=== PATIENT | male | born 1975 | race Caucasian/White ===

== ENCOUNTER → 2021-11-22 11:20 | Outpatient (BNVA) | payer OTHER, SELFPAY | PROVIDERS: PCP Nurse Practitioner Family; Visit Provider Nurse Practitioner Family | DX: E78.5 Hyperlipidemia, unspecified (principal); I10 Essential (primary) hypertension; J30.2 Other seasonal allergic rhinitis; M19.90 Unspecified osteoarthritis, unspecified site; W57.XXXA Bitten or stung by nonvenomous insect and other nonvenomous arthropods, initial encounter | CPT/HCPCS: 80053; 80061; 86618; 86666; 86757; G0103 ==

== ENCOUNTER → 2022-03-27 10:04 | Outpatient (BNVA) | payer OTHER, SELFPAY | PROVIDERS: PCP Nurse Practitioner Family; Visit Provider Nurse Practitioner Family | DX: I10 Essential (primary) hypertension (principal); R42 Dizziness and giddiness | CPT/HCPCS: 80053; 80061 ==

== ENCOUNTER 2022-08-11 13:12 | Outpatient (CLI) | payer OTHER, SELFPAY ==
--- NOTE | 2022-08-11 13:23 | XR_ITS ---
WS: [id number] Sacroiliac joints, 3 views, 08/11/2022 Clinical Data: fall at home left sided sciatica Comparison: None. Findings: The SI joints are normal in width. No erosion, sclerosis or destruction is seen. There are no fractur es or dislocations. The adjacent visualized pelvis and hips are unremarkable. XR/XR sacroiliac jts m 3V [id number] Impression: Negative SI joints.
== END 2022-08-11 13:13 | disposition home or self-care (01) ==
LOC: RAD 13:15
PROVIDERS: PCP Nurse Practitioner Family; Visit Provider Nurse Practitioner Family
DX: M54.42 Lumbago with sciatica, left side (principal); Z91.81 History of falling
CPT/HCPCS: 72202

== ENCOUNTER 2022-08-22 18:10 | Emergency (ER) | payer OTHER, SELFPAY ==
--- NOTE | 2022-08-22 18:13 | XRR_ITS ---
PROCEDURE INFORMATION: Exam: XR Left Hand Exam date and time: 08/22/2022 6:26 PM Age: 46 years old Clinical indication: Injury or trauma; Other: Building a duck pond; Sprain or strain; Hand; Left TECHNIQUE: Imaging protocol: Radiologic exam of the left hand. Views: 3 or more views. COMPARISON: No relevant prior studies available. FINDINGS: Bones/joints: No acute fracture. No dislocation. Normal bone mineralization. No joint effusion. Joint spaces are maintained. Soft tissues: No soft tissue swelling. No radiopaque foreign body. XR/XR hand LT min 3V* [id number] IMPRESSION: Negative radiographs of the left hand. Followup imaging recommended in 7-14 days if clinical concern for fracture persists.
[2022-08-22 19:12] VITALS: BP 144/83; PULSE 51; RESP 16; TEMP 36.6; O2SAT 99
--- NOTE | 2022-08-22 19:25 | W.ED.EXTPRO ---
HPI - Extremity Problem General: Chief complaint: Extremity Injury, Upper Stated complaint: Left Hand Injury Time Seen by Provider: 08/22/22 19:25 History of Present Illness: 46-year-old male patient comes in today for complaints of fourth and fifth MCP joint pain and swelling. Patient had a dislocation of his fifth MCP joint in May. Since then patient has had on and off discomfort to the joint. Patient tapes his 2 fingers together for protection to prevent further dislocation. Patient comes in today due to persistent discomfort and need for further evaluation and treatment. Distal pulses and sensation are intact. Associated symptoms: Deny chest pain Review of Systems General: Reports: 10 or more systems reviewed and unremarkable except in HPI and below Card: Denies: chest pain Resp: Denies: dyspnea GI: Denies: vomiting Musc: Reports: joint pain (Fourth and fifth MCP joint left hand) PFS ED PFSH: Medical History Arthritis Hyperlipidemia Hypertension Seasonal allergies Family History Father , COLON Cancer Social History Smoking and tobacco status: current every day smoker Physical Exam Const: COMMON NORMALS: alert HENMT: COMMON NORMALS: normocephalic HEAD & SCALP: normocephalic Neck/C-Spine: COMMON NORMALS: full ROM Resp: COMMON NORMALS: normal respiratory effort Cardio: COMMON NORMALS: regular rate and regular rhythm RATE: regular rate RHYTHM: regular rhythm Back/Pelvis: COMMON NORMALS: thoracic and lumbar spine normal to inspection Extremity: LEFT UPPER EXTREMITY: Yes hand & digits (Mild decrease in implementation architect strength, mild swelling MCP joint 4-5) Left hand and digits: Yes inspection, Yes palpation, Yes ROM and Yes neurovascular exam Neuro: SENSORIUM/ORIENTATION: Yes alert Skin: COMMON NORMALS: turgor normal GENERAL SKIN EXAM: turgor normal Course Vital Signs: Vital signs: Vital Signs Temperature 97.8 F 08/22/22 19:12 Pulse Rate 51 L 08/22/22 19:12 Respiratory Rate 16 08/22/22 19:12 Blood Pressure 144/83 08/22/22 19:12 Pulse Oximetry 99 08/22/22 19:12 Oxygen Delivery Me thod Room Air 08/22/22 19:12 MDM - Extremity (Nontraumatic) Medical Decision Making 46-year-old male patient comes in today for complaints of injury to the left hand fourth and fifth MCP joint. Patient has had a dislocation of the fifth MCP joint in May. It was reduced in office of urgent care. Since then patient has had increased pain and discomfort to the fourth and fifth MCP joint. Mild swelling is noted on exam. Mild weakness is noted in implementation architect strength. Normal sensation and cap refill is intact. Differential diagnosis includes but not limited to malingering, MCP joint strain, meniscal injury, ligament injury. X-ray of the hand was unremarkable. Recommend follow-up with Ortho hand specialist for further evaluation and treatment. Case management was requested to assist with follow-up. No further recommendations were noted at this time. Patient stated understanding. Lab Data Radiology Impressions Hand X-Ray 08/22/22 18:13 IMPRESSION: Negative radiographs of the left hand. Followup imaging recommended in 7-14 days if clinical concern for fracture persists. Discharge Plan Discharge Patient Disposition: Home Clinical Impression: Dislocation of MCP joint of hand Qualifiers: Encounter type: subsequent encounter Qualified Code(s): S63.269D - Dislocation of metacarpophalangeal joint of unspecified finger, subsequent encounter Condition: Stable Prescriptions: No Action lisinopril 40 mg tablet 40 mg PO DAILY amlodipine 5 mg tablet 5 mg PO DAILY cetirizine [Zyrtec] 10 mg tablet 10 mg PO DAILY PRN cyclobenzaprine 10 mg tablet 10 mg PO TID PRN (Reason: muscle spasm) Qty: 90 0RF naproxen [EC-Naproxen] 500 mg tablet,delayed release (DR/EC) 500 mg PO BID PRN (Reason: pain) Qty: 60 0RF atorvastatin 20 mg tablet 20 mg PO DAILY Qty: 90 0RF Discharge Orders: Discharge ED (Routine); Ordered 08/22/22 Ordered By: Raul Daugherty Referrals: Lorelei Diop NP [Primary Care Provider] - Discharge Diet: Usual diet Discharge Activity: Increase activity as tolerated Patient Instructions: Finger Dislocation (ED) Activity Restrictions/Additional Instructions: Home and rest. Jamie tape fingers for support. Use acetaminophen and ibuprofen for pain. Activity as tolerated. Follow-up with primary care as needed. Case management will contact you for assistance with follow-up with orthopedist for further treatment. Coding Level of Care Code ED Licensed Occupational Therapy Assistant for Huseyin Perez
--- NOTE | 2022-08-23 08:31 | DCPLANNER ---
Addendum entered by Merissa Rees 08/27/22 08:08: Patient had a follow up appointment scheduled with ortho - patient did attend appointment Addendum entered by Merissa Rees 08/23/22 16:00: Patient has a followup appointment scheduled for Friday, August 25 at 11:[address] Franklin at ortho. Original Note: system developer associate manager had message to schedule a follow up appointment for patient with ortho. system developer associate manager sent patients information to the front office staff at ortho. Patients information will be printed and reviewed. Clinic will call patient with appointment information.
== END 2022-08-22 20:10 | disposition home or self-care (01) ==
PROVIDERS: Emergency Provider Nurse Practitioner Family; PCP Nurse Practitioner Family
DX: S63.26 Dislocation of metacarpophalangeal joint of finger (principal); X58.XXXD Exposure to other specified factors, subsequent encounter; E78.5 Hyperlipidemia, unspecified; I10 Essential (primary) hypertension; F17.210 Nicotine dependence, cigarettes, uncomplicated
CPT/HCPCS: 73130; 99283

== ENCOUNTER 2022-09-27 15:34 | Outpatient (CLI) | payer OTHER, SELFPAY ==
--- NOTE | 2022-09-27 16:00 | MR_ITS ---
WS: [id number] MRI LEFT HAND without CONTRAST. COMPARISON: Hand radiographs 08/22/2022 Multiplanar, multisequence imaging is performed without contrast. Study terminated early due to pain. No fractures or marrow edema. No dislocation. There is a small am ount of fluid surrounding the fifth metacarpal head at the metacarpal phalangeal joint. The alignment is normal. There is additional soft tissue edema. The extensor tendon associated with the fifth meta carpal and phalanx appears intact. There is slight separation from the bone with increased fluid. The re is a very subtle finding. This is also the site of the increased fluid surrounding the fifth metac arpal phalangeal joint. No foreign bodies or additional abnormalities are identified. No muscle atrophy. MR/MR hand LT wo con* [id number] IMPRESSION: 1. Increase fluid surrounding the fifth metacarpal phalangeal joint. No fractu re. 2. There is very slight separation but not complete tear involving the extenso r tendon at the level of the fifth metacarpal head. No full-thickness tear.
== END 2022-09-27 15:35 | disposition home or self-care (01) ==
PROVIDERS: PCP Nurse Practitioner Family; Visit Provider Student in an Organized Health Care Education/Training Program
DX: S63.269A Dislocation of metacarpophalangeal joint of unspecified finger, initial encounter (principal); X58.XXXA Exposure to other specified factors, initial encounter; M67.844 Other specified disorders of tendon, left hand
CPT/HCPCS: 73218

== ENCOUNTER → 2022-10-27 13:12 | Outpatient (BNVA) | payer OTHER, SELFPAY | PROVIDERS: PCP Nurse Practitioner Family; Visit Provider Nurse Practitioner Family | DX: E78.5 Hyperlipidemia, unspecified (principal); I10 Essential (primary) hypertension; M19.90 Unspecified osteoarthritis, unspecified site; W57.XXXA Bitten or stung by nonvenomous insect and other nonvenomous arthropods, initial encounter | CPT/HCPCS: 80053; 80061; 86003; 86008; 86618; 86666; 86757 ==

== ENCOUNTER 2022-11-02 10:08 | Outpatient (CLI) | payer OTHER, SELFPAY ==
--- NOTE | 2022-11-02 10:19 | XR_ITS ---
WS: [id number] EXAMINATION: XR coccyx 2V 07000 REASON FOR EXAM: pain COMPARISON: None available. ORDER DATE: 11/02/2022 10:20 AM FINDINGS/IMPRESSION: No evidence of acute osseous abnormality.
== END 2022-11-02 10:09 | disposition home or self-care (01) ==
PROVIDERS: PCP Nurse Practitioner Family; Visit Provider Nurse Practitioner Family
DX: M53.3 Sacrococcygeal disorders, not elsewhere classified (principal)
CPT/HCPCS: 72220

== ENCOUNTER → 2022-12-22 11:41 | Outpatient (BNVA) | payer OTHER, SELFPAY | PROVIDERS: PCP Nurse Practitioner Family; Visit Provider Nurse Practitioner Family | DX: Z01.89 Encounter for other specified special examinations (principal) | CPT/HCPCS: 86003; 86008; 86618; 86666; 86757 ==

== ENCOUNTER 2023-01-02 21:56 | Emergency (ER) | payer OTHER, SELFPAY ==
--- NOTE | 2023-01-02 21:58 | ECG_ITS ---
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 Measurements Intervals [place] Rate: 56 P: 58 IA: 160 QRS: -3 QRSD: 102 T: 30 QT: 373 QTc: 360 Interpretive Statements SINUS BRADYCARDIA MODERATE VOLTAGE CRITERIA FOR LVH, CONSIDER NORMAL VARIANT [MEETS CRITERIA IN ONE OF: R(aVL), S(V1), R(V5), R(V5/V6)+S(V1)] INTERPRETATION BASED ON A DEFAULT AGE OF 40 YEARS No previous ECG available for comparison Electronically Signed On 01-03-2023 20:48:14 CDT by Katerine Cook M.D. [id number]
--- NOTE | 2023-01-02 21:58 | XRR_ITS ---
PROCEDURE INFORMATION: Exam: XR Chest Exam date and time: 01/02/2023 10:16 PM Age: 47 years old Clinical indication: Pain; Chest pressure; Additional info: Cp TECHNIQUE: Imaging protocol: Radiologic exam of the chest. Views: 1 view. COMPARISON: No relevant prior studies available. FINDINGS: Lungs: Unremarkable. No consolidation. Pleural spaces: Unremarkable. No pleural effusion. No pneumothorax. Heart/Mediastinum: Mild cardiomegaly. Bones/joints: Unremarkable. XR/XR chest 1V portable [id number] IMPRESSION: 1. No acute findings. 2. Heart is mildly enlarged.
[2023-01-02 22:03] VITALS: BP 164/90; PULSE 57; RESP 16; TEMP 36.7; O2SAT 98; BMI 29.0
--- NOTE | 2023-01-02 22:15 | ED_ITS ---
HPI - Chest Pain General: Chief Complaint: Chest Pain Stated Complaint: Chest Pains\SON Time Seen by Provider: 01/02/23 21:58 Source: patient Mode of arrival: ambulatory Limitations: no limitations History of Present Illness: 47-year-old male states for the last 2 to 3 days he has been having just gene ralized fatigue states he has felt very tired having some mild weakness states today started having some left-sided chest pain its been intermittent denies any severe pain he denies any shortness of breath denies any fevers he denies any worsening improving factors denies any abdominal pain. Associated symptoms: Reports dyspnea; Deny abdominal pain, fever(s), nausea or vomiting Review of Systems Const: Reports: fatigue and malaise; Denies: fever(s) or chills Eyes: Denies: blurry vision or eye discomfort ENMT: Denies: throat pain or dental pain Card: Reports: chest pain Resp: Reports: dyspnea GI: Denies: abdominal pain, nausea, vomiting or diarrhea : Denies: dysuria Musc: Denies: neck pain or back pain Skin/Breast: Denies: rash Neuro: Reports: numbness in extremities; Denies: headache(s) PFSH ED PFSH: Medical History Arthritis Hyperlipidemia Hypertension Seasonal allergies Family History Father , COLON Cancer Social History Smoking and tobacco status: current every day smoker Physical Exam Const: COMMON NORMALS: no acute distress, patient oriented x3 and healthy appearing HENMT: COMMON NORMALS: normocephalic and atraumatic HEAD & SCALP: normocephalic and atraumatic Eye: COMMON NORMALS: Equal, round and reactive pupils present and EOMs intact bilaterally PUPIL: Yes Equal, round and reactive pupils present Neck/C-Spine: COMMON NORMALS: full ROM and supple Chest: COMMONS NORMALS: normal inspection of the chest and normal palpation of entire chest wall Resp: COMMON NORMALS: normal respiratory effort, No retractions, No use of accessory muscles and clear to auscultation bilaterally AUSCULTATION: clear to auscultation bilaterally Cardio: COMMON NORMALS: regular rate, regular rhythm and No murmurs present (Cardio) RATE: regular rate RHYTHM: regular rhythm GI: COMMON NORMALS: Normal to inspection, nondistended, normoactive bowel sounds present, Soft to palpation, non-tender and no masses PALPATION: Yes Soft to palpation Extremity: COMMON NORMALS: normal to inspection and full ROM Neuro: COMMON NORMALS: patient oriented x3, moves all extremities and no focal motor deficits Psych: COMMON NORMALS: mental status grossly normal, Normal thought process present and cooperative THOUGHT PROCESS: Normal thought process present Skin: COMMON NORMALS: no rashes or lesions noted and no wounds GENERAL SKIN EXAM: no rashes or lesions noted Course Vital Signs: Vital signs: Vital Signs Temperature 98.1 F 01/02/23 22:03 Pulse Rate 50 L 01/02/23 23:16 Respiratory Rate 17 01/02/23 23:16 Blood Pressure 122/79 01/02/23 23:16 Pulse Oximetry 97 01/02/23 23:16 Oxygen Delivery Me thod Room Air 01/02/23 23:16 MDM - Chest Pain Medical Decision Making Patient presents with general fatigue along with chest pain he has been well- appearing here D-dimer is negative troponins EKG are all normal as well. Patient's had no chest pain while being here is no signs of acute coronary syndrome. He is stable for discharge he is to follow-up with PCP if he has worsening symptoms he is to return to the ER he understands agrees to plan. Medical Records I reviewed the patient's medical records. Lab Data I reviewed the patient's lab results. 01/02/23 22:13 01/02/23 22:13 Radiology Impressions Chest X-Ray 01/02/23 21:58 IMPRESSION: 1. No acute findings. 2. Heart is mildly enlarged. Laboratory Results WBC 9.33 10^3/uL (3.29-11.43) 01/02/23 22:13 RBC 4.23 10^6/uL (3.85-5.65) 01/02/23 22:13 Hgb 12.80 g/dL (11.27-16.99) 01/02/23 22:13 Hct 39.2 % (37-53) 01/02/23 22:13 MCV 92.7 fl (82-101) 01/02/23 22:13 MCH 30.3 pg (27-33) 01/02/23 22:13 MCHC 32.7 g/dL (30-55) 01/02/23 22:13 RDW 12.6 % (12.1-15.1) 01/02/23 22:13 Plt Count 301 10^3/cmm (157-399) 01/02/23 22:13 MPV 9.5 fL (7.4-10.4) 01/02/23 22:13 Neut % (Auto) 40.5 % 01/02/23 22:13 Lymph % (Auto) 45.7 % 01/02/23 22:13 [place] % (Auto) 5.8 % 01/02/23 22:13 Eos % (Auto) 6.9 % 01/02/23 22:13 Baso % (Auto) 0.8 % 01/02/23 22:13 Neut # (Auto) 3.79 10^3/uL (1.8-7.7) 01/02/23 22:13 Lymph # (Auto) 4.3 10^3/uL (0.8-4.8) 01/02/23 22:13 [place] # (Auto) 0.5 10^3/uL (0.2-0.9) 01/02/23 22:13 Eos # (Auto) 0.6 10^3/uL (0.0-0.8) 01/02/23 22:13 Baso # (Auto) 0.1 10^3/uL (0.0-0.1) 01/02/23 22:13 Nucleated RBC % (auto) 0 % 01/02/23 22:13 Nucleated RBCs # 0.0 /100WBC 01/02/23 22:13 PT 12.60 SECONDS (12.1-14.9) 01/02/23 22:13 INR 0.91 (0.8-1.2) 01/02/23 22:13 D-Dimer 0.36 ug/mLFEU (0-0.59) 01/02/23 22:13 Sodium 141 mmol/L (136-145) 01/02/23 22:13 Potassium 4.0 mmol/L (3.5-5.1) 01/02/23 22:13 Chloride 105 mmol/L (98-107) 01/02/23 22:13 Carbon Dioxide 28 mmol/L (22-29) 01/02/23 22:13 Anion Gap 12.0 (5-19) 01/02/23 22:13 BUN 16 mg/dL (6-20) 01/02/23 22:13 Creatinine 0.8 mg/dL (0.7-1.2) 01/02/23 22:13 GFR Calculation 103.2 mL/min (90-130) 01/02/23 22:13 Glucose 122 mg/dL (65-115) H 01/02/23 22:13 Calculated Osmolality 294 mOsm/kg (285-295) 01/02/23 22:13 Calcium 9.2 mg/dL (8.5-10.5) 01/02/23 22:13 Total Bilirubin 0.2 mg/dL (0.15-1.2) 01/02/23 22:13 AST 13 U/L (0-40) 01/02/23 22:13 ALT 18 U/L (0-41) 01/02/23 22:13 Alkaline Phosphatase 76 U/L (40-130) 01/02/23 22:13 Troponin T Baseline 14 ng/L (0-15) 01/02/23 22:13 Troponin T 120 Minute 8.5 ng/L (0-15) 01/03/23 00:10 Delta Troponin T -5.5 ABS# (0-10) L 01/03/23 00:10 Total Protein 6.5 g/dL (6.6-8.7) L 01/02/23 22:13 Albumin 4.4 g/dL (3.5-5.2) 01/02/23 22:13 Globulin 2.1 g/dL (1.3-4.6) 01/02/23 22:13 Lipase 62 U/L (13-60) H 01/02/23 22:13 TSH 2.61 uIU/mL (0.27-4.20) 01/02/23 22:13 TSH Cancelled 01/02/23 22:13 All radiology interpretation(s) finalized by discharge EKG Data EKG 1: I personally reviewed and interpreted this EKG as follows: EKG interpretation date: 01/02/23 EKG interpretation time: 22:01 Interpretation: sinus katy hr [address] or t wave abnormalities qrs 102 qtc 364 EKG 2: I personally reviewed and interpreted this EKG as follows: EKG interpretation date: 01/02/23 EKG interpretation time: 23:59 Interpretation: sinus katy hr [address] or t wave abnormalities qrs 94 qtc 367 Discharge Plan Discharge Patient Disposition: Home Clinical Impression: Chest pain, Fatigue Condition: Stable Prescriptions: No Action doxycycline hyclate 100 mg capsule 100 mg PO BID 10 Days Qty: 20 0RF methylprednisolone [Medrol (Calixto)] 4 mg tablets,dose pack See Rx Instructions PO PER PKG DIR Qty: 21 0RF Rx Instructions: PO PER PKG DIR cetirizine [Zyrtec] 10 mg tablet 10 mg PO DAILY PRN amlodipine 5 mg tablet 5 mg PO DAILY 90 Days Qty: 90 1RF atorvastatin 20 mg tablet 20 mg PO .QHS 90 Days Qty: 90 1RF lisinopril 40 mg tablet 40 mg PO DAILY 90 Days Qty: 90 1RF naproxen [EC-Naproxen] 500 mg tablet,delayed release (DR/EC) 500 mg PO BID PRN (Reason: pain) Qty: 60 5RF cyclobenzaprine 10 mg tablet See Rx Instructions .ROUTE .COMPLEX Qty: 90 1RF Dose Instruction: TAKE 1 TABLET BY MOUTH THREE TIMES A DAY NEEDED FOR MUSCLE SPASM Rx Instructions: TAKE 1 TABLET BY MOUTH THREE TIMES A DAY NEEDED FOR MUSCLE SPASM Discharge Orders: Discharge ED (Routine); Ordered 01/03/23 Ordered By: Alicia Mathew Referrals: Lorelei Diop NP [Primary Care Provider] - 1-3 days Discharge Diet: Advance as tolerated Discharge Activity: Resume usual activity Patient Instructions: Chest Pain (ED) Coding Level of Care Code ED Predictive Maintenance Technician for Huseyin Perez
[2023-01-02 22:20] LABS: Basophils # 0.1 10^3/uL (0.0-0.1); Basophils % 0.8 %; Eosinophils # 0.6 10^3/uL (0.0-0.8); Eosinophils % 6.9 %; Hematocrit 39.2 % (37-53); Lymphocytes # 4.3 10^3/uL (0.8-4.8); Lymphocytes % 45.7 %; Mean Corpuscular HGB Conc 32.7 g/dL (30-55); Mean Corpuscular Hemoglobin 30.3 pg (27-33); Mean Corpuscular Volume 92.7 fl (82-101); Mean Platelet Volume 9.5 fL (7.4-10.4); Monocytes # 0.5 10^3/uL (0.2-0.9); Monocytes % 5.8 %; Neutrophils # 3.79 10^3/uL (1.8-7.7); Neutrophils % 40.5 %; Nucleated Red Blood Cells % 0 %; Platelet Count 301 10^3/cmm (157-399); Red Blood Count 4.23 10^6/uL (3.85-5.65); Red Cell Distribution Width 12.6 % (12.1-15.1); White Blood Count 9.33 10^3/uL (3.29-11.43)
[2023-01-02 22:21] VITALS: BP 150/91; PULSE 56; RESP 12; O2SAT 99
[2023-01-02 22:39] LABS: INR 0.91 (0.8-1.2)
[2023-01-02 22:42] LABS: Troponin(5th) Baseline 14 ng/L (0-15)
[2023-01-02 22:50] LABS: D Dimer 0.36 ug/mLFEU (0-0.59)
[2023-01-02 22:55] LABS: Alanine Aminotransferase 18 U/L (0-41); Albumin Level 4.4 g/dL (3.5-5.2); Alkaline Phosphatase 76 U/L (40-130); Aspartate Amino Transferase 13 U/L (0-40); Blood Urea Nitrogen 16 mg/dL (6-20); Calcium 9.2 mg/dL (8.5-10.5); Carbon Dioxide 28 mmol/L (22-29); Chloride 105 mmol/L (98-107); Globulin 2.1 g/dL (1.3-4.6); Glomerular Filtration Rate 103.2 mL/min (90-130); Glucose 122 mg/dL (65-115); Lipase 62 U/L (13-60); Osmolality Calculated 294 mOsm/kg (285-295); Sodium 141 mmol/L (136-145); Thyroid Stimulating Hormone 2.61 uIU/mL (0.27-4.20); Total Bilirubin 0.2 mg/dL (0.15-1.2); Total Protein 6.5 g/dL (6.6-8.7)
[2023-01-02 23:16] VITALS: BP 122/79; PULSE 50; RESP 17; O2SAT 97
--- NOTE | 2023-01-02 23:59 | ECG_ITS ---
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 Measurements Intervals [place] Rate: 48 P: 37 DE: 155 QRS: -1 QRSD: 94 T: 20 QT: 401 QTc: 359 Interpretive Statements SINUS BRADYCARDIA MODERATE VOLTAGE CRITERIA FOR LVH, CONSIDER NORMAL VARIANT [MEETS CRITERIA IN ONE OF: R(aVL), S(V1), R(V5), R(V5/V6)+S(V1)] No previous ECG available for comparison Electronically Signed On 01-03-2023 20:55:20 CDT by Katerine Cook M.D. [id number]
[2023-01-03 00:33] LABS: Troponin 5 2HR 8.5 ng/L (0-15); Troponin 5 2HR Delta -5.5 ABS# (0-10)
[2023-01-03 00:45] VITALS: BP 131/80; PULSE 68; RESP 21; O2SAT 97
== END 2023-01-03 00:42 | disposition home or self-care (01) ==
PROVIDERS: Emergency Provider Emergency Medicine; PCP Nurse Practitioner Family
DX: R07.9 Chest pain, unspecified (principal); R53.83 Other fatigue; I10 Essential (primary) hypertension; E78.5 Hyperlipidemia, unspecified; F17.210 Nicotine dependence, cigarettes, uncomplicated
CPT/HCPCS: 36415; 71045; 80053; 83690; 84443; 84484; 85025; 85378; 85610; 93005; 99285

== ENCOUNTER → 2023-04-19 11:13 | Outpatient (BNVA) | payer OTHER, SELFPAY | PROVIDERS: PCP Nurse Practitioner Family; Visit Provider Nurse Practitioner Family | DX: R53.83 Other fatigue (principal); E78.5 Hyperlipidemia, unspecified; I10 Essential (primary) hypertension | CPT/HCPCS: 80053; 80061; 82607; 82746; 84402; 84403 ==

== ENCOUNTER → 2023-06-21 13:46 | Outpatient (BNVA) | payer OTHER, SELFPAY | PROVIDERS: PCP Nurse Practitioner Family; Visit Provider Orthopaedic Surgery | DX: M54.50 Low back pain, unspecified (principal); M53.3 Sacrococcygeal disorders, not elsewhere classified | CPT/HCPCS: 72110 ==

== ENCOUNTER → 2024-10-07 12:04 | Outpatient (BNVA) | payer OTHER, SELFPAY | PROVIDERS: PCP Nurse Practitioner Family; Visit Provider Nurse Practitioner Family | DX: I10 Essential (primary) hypertension (principal) | CPT/HCPCS: 80053; 80061; 81000; 82607; 83036; 84443; 85025 ==

== ENCOUNTER → 2024-10-15 11:58 | Outpatient (BNVA) | payer OTHER, SELFPAY | PROVIDERS: PCP Nurse Practitioner Family; Visit Provider Nurse Practitioner Family | DX: T14.8XXA Other injury of unspecified body region, initial encounter (principal); W57.XXXA Bitten or stung by nonvenomous insect and other nonvenomous arthropods, initial encounter | CPT/HCPCS: 86003; 86008; 86618; 86666; 86757 ==

== ENCOUNTER 2024-11-28 14:09 | Outpatient (CLI) | payer OTHER, SELFPAY ==
--- NOTE | 2024-11-28 14:30 | MR_ITS ---
WS: [id number] MRI HEAD WITH CONTRAST TECHNIQUE: Sagittal T1, T2 axial, T2 axial FLAIR, axial susceptibility weighted imaging, axial diffusion weighted images, and coronal T2 images were obtained. Pre and post-T1 axial and post T1 coronal images. ADC and FSPGR images. CLINICAL INFORMATION: R42 - Dizziness and giddiness COMPARISON: None. FINDINGS: No evidence of restricted diffusion to suggest acute ischemia. Mild small vessel changes. Mild parenchymal volume loss. Normal posterior fossa. Normal vascular flow voids at the skull base. No extra-axial fluid collections. Mucosal thickening in the ethmoid air cells. Mastoid air cells are well aerated. Normal optic chiasm and pituitary infundibulum. Temporal lobes and hippocampal formations are normal. No abnormal gadolinium enhancement. Incidental capillary telangiectasia in the shekhar with typical imaging characteristics. Normal dural venous sinuses. MR/MR head wo/w con [id number] IMPRESSION: 1. No evidence of restricted diffusion to suggest acute ischemia. 2. Mild small vessel changes and mild parenchymal volume loss. 3. Enhancing benign capillary telangiectasia within the shekhar 4. Mucosal thickening in the ethmoid air cells. 5. No other acute findings.
--- NOTE | 2024-11-28 15:30 | USCV_ITS ---
Kalpesh Storm Age: 49 Gender: M : 1975 Exam Date: 11/28/2024 14:44 Ordering Phys: Grecia Truong HOME MANAGER Technologist: Sultana Foreman Exam Location: [facility] [place] Indication: dizziness and giddiness Risk Factors: Previous Vascular Surgery: Right Brachial BP: / Left Brachial BP: / Right Left Velocity (cm/s) Spectral Plaque Velocity (cm/s) Spectral Plaque Syst/Diast Broadening Syst/Diast Broadening 88.90/ 22.80 Prox CCA 90.20 / 21.60 88.90/ 25.40 Mid CCA 100.20/ 27.60 81.60/ 26.90 Distal CCA 81.80 / 27.30 92.50/ 32.70 Prox ICA 68.90 / 23.90 83.20/ 26.30 Mid ICA 59.40 / 23.10 67.40/ 28.20 Distal ICA 78.60 / 32.70 71.50 ECA 82.80 1.10 ICA/CCA 0.80 Antegrade Vertebral Antegrade 47.30/ 16.10 cm/s 49.20/ 15.20 cm/s Tri Subclavian Tri 108.2 191.9 0 0 FINDINGS Comparison: none available. No significant elevation of systolic or diastolic velocities. Waveforms are normal. Mixture of calcified and noncalcified plaque in the bifurcations. CONCLUSIONS Bilateral ICA stenosis less than 50%. Mild atherosclerosis in the bifurcations. Dr. Soo Pillai DO (Electronically Signed) Final Date: 01 December 2024 07:39 S
[2024-11-28] MEDS: gadobenate dimeglumine 20 mL vial IV (15:42)
== END 2024-11-28 14:10 | disposition home or self-care (01) ==
LOC: RAD 14:11
PROVIDERS: PCP Nurse Practitioner Family; Visit Provider Nurse Practitioner Family
DX: R42 Dizziness and giddiness (principal); R51.9 Headache, unspecified; I65.23 Occlusion and stenosis of bilateral carotid arteries; R93.0 Abnormal findings on diagnostic imaging of skull and head, not elsewhere classified
CPT/HCPCS: 70553; 93880